=== PATIENT | female | born 1985 | race Two or more races ===

== ENCOUNTER 2024-09-27 18:09 | Emergency (ER) | payer MEDICAID, SELFPAY ==
[2024-09-27 18:16] VITALS: BP 136/91; PULSE 74; RESP 18; TEMP 36.8; O2SAT 98; BMI 31.4
--- NOTE | 2024-09-27 19:38 | XR_ITS ---
Examination:Right hip AP, lateral, AP pelvis 3 views Technique: Hip AP lateral, AP pelvis, 3 views Exam date and time:September 27, 20242043 hrs. Indications: Injury to the hip yesterday, hip pain. Findings: No acute fracture No dislocation Impression: No acute fracture.
--- NOTE | 2024-09-27 19:38 | XR_ITS ---
Examination: CT brain head without contrast. 2-D sagittal coronal reconstructions Date and time of exam:September 27, 2024 1947 hrs. Indications: Patient fell yesterday with injury to the head, head pain CTDI: vol (mGy):46.9 DLP: (mGycm):985 Technique: Multiple CT axial sections of the brain have been obtained, 5 mm slice thickness. Contrast has not been administered. 2-D sagittal, coronal reconstructions have been obtained Low dose protocols were performed. One or more of the following dose reduction techniques were used; automated exposure control, adjustment of the mA and/or KV according to patient size, use of iterative reconstruction technique. Findings: No significant ventricular enlargement. Intra-axial or extra-axial hemorrhage density is not seen. No mass effect or midline shift Basal cisterns are not remarkable. Fourth ventricle is midline. Cranial vault intact. Impression: Negative for acute hemorrhage, mass effect or midline shift
--- NOTE | 2024-09-27 19:38 | XR_ITS ---
Examination: CT cervical spine without contrast 2-D sagittal reconstructions 2-D coronal reconstructions 3-D reconstructions. Exam date and time:September 27, 2024 1947 hrs. Comparison August 25, 2023 Indications: Patient fell yesterday with injury to the neck, persistent neck pain CTDI:vol (mGy) 7.84 DLP: (mGycm) 161 Technique: Multiple 2 mm axial sections of the cervical spine have been obtained. The coronal and sagittal reconstructions have been obtained. 3-D reconstructions have been obtained. Low dose protocols were performed. One or more of the following dose reduction techniques were used; automated exposure control, adjustment of the mA and/or KV according to patient size, use of iterative reconstruction technique. Findings: Axial sections demonstrate intact base of the skull. C1 exhibit satisfactory relationship to the odontoid. No acute cervical vertebral body fracture seen. Alignment posterior spinous processes satisfactory. Impression: No acute cervical fracture.
[2024-09-27 20:24] LABS: HCG Qualitative,Urine Negative
--- NOTE | 2024-09-27 20:25 | EDNOTE_ITS ---
ED Head Injury RME/HPI General Chief complaint: Head Injury Stated complaint: RIGHT HEAD PAIN . 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 Limitations: no limitations Related Data Home Medications ?Medication ?Instructions ?Recorded ?Confirmed pregabalin 75 mg capsule (Lyrica) 75 mg PO BID PRN Pain 06/30/19 06/30/19 Previous Rx's ?Medication ?Instructions ?Recorded hydrocodone 5 mg-acetaminophen 325 1 tab PO BID PRN pain #8 tabs 04/02/23 mg tablet ibuprofen 800 mg tablet 800 mg PO TID PRN pain #30 tabs 04/02/23 nortriptyline 25 mg capsule 25 mg PO .qhs #30 caps 06/25/23 Allergies Allergy/AdvReac Type Severity Reaction Status Date / Time latex Allergy Severe Hives Verified 09/27/24 18:10 Penicillins Allergy Severe FACIAL Verified 09/27/24 18:10 SWELLING Pork/Porcine Containing Allergy Severe Hives Verified 09/27/24 18:10 Products Review of Systems Review of Systems Systems Reviewed: All systems reviewed, normal except as documented Constitutional Constitutional: Reports system reviewed and no additional complaints, except as documented, Reports as per HPI, Denies fever(s) and Reports headache(s) (pain) ENT Ears, Nose, Mouth, and Throat: Denies disequilibrium, Reports headache(s) (pain) and Reports neck pain Cardiovascular Cardiovascular: Reports system reviewed and no additional complaints, except as documented, Denies chest pain and Denies dyspnea Respiratory Respiratory: Reports system reviewed and no additional complaints, except as documented, Denies cough and Denies dyspnea Gastrointestinal Gastrointestinal: Reports system reviewed and no additional complaints, except as documented, Denies abdominal pain, Denies nausea and Denies vomiting Musculoskeletal Musculoskeletal: Reports as per HPI, Reports arthralgias and Reports neck pain Neurologic Neurologic: Reports system reviewed and no additional complaints, except as documented, Denies confusion, Denies disequilibrium and Reports headache(s) (pain) Psychiatric Psychiatric: Denies confusion Past Medical History Past Medical History CARDIAC: Negative Congestive Heart Failure RESPIRATORY: Negative Chronic Obstructive Pulmonary Disease (COPD) GASTROINTESTINAL: Positive Hiatal Hernia GENITOURINARY: Negative Renal Disease MUSCULOSKELETAL: Positive Musculoskeletal Disorders ENDOCRINE: Negative Diabetes Mellitus Type 1 or Diabetes Mellitus Type 2 Social History SMOKING STATUS: Never smoker ED Exam General Limitations: Present no limitations General appearance: Present alert and in no apparent distress Head Head exam: Present atraumatic Eye Eye exam: Present normal appearance, PERRL and EOMI ENT ENT exam: Present normal exam, normal oropharynx and mucous membranes moist Neck Neck exam: Present normal inspection, full ROM and trachea midline Chest Chest inspection: Present normal inspection and symmetric chest wall rise Respiratory Respiratory exam: Present normal lung sounds bilaterally Cardiovascular Cardiovascular exam: Present regular rate, normal rhythm and normal heart sounds Abdominal Exam Abdominal exam: Present soft and normal bowel sounds Extremities Exam Extremities exam: Present full ROM Expanded Lower Extremity Exam Hip/Pelvis exam: Present full ROM (R) and tenderness Back Exam Back exam: Present normal inspection and full ROM Neurological Exam Neurological exam: Present alert, oriented X3 and CN II-XII intact Psychiatric Psychiatric exam: Present normal affect and normal mood Skin Skin exam: Present warm, dry, intact and normal color Course Quality Measures none Orders Category Date Time Status CT cervical spine wo con Stat Exams 09/27/24 19:[address] head/brain wo con Stat Exams 09/27/24 19:38 Completed XR hip RT w pelvis min 4V Stat Exams 09/27/24 19:38 Completed HCG Qualitative,Urine Stat Lab 09/27/24 19:53 Completed Vital Signs Vital signs: Vital Signs Temperature 98.2 F 09/27/24 18:16 Pulse Rate 74 09/27/24 18:16 Respiratory Rate 18 09/27/24 18:16 Blood Pressure 136/91 H 09/27/24 18:16 Pulse Oximetry (%) 98 09/27/24 18:16 Oxygen Delivery Method Room Air 09/27/24 18:16 O2 at 98% on RA and WNLs Head Injury MDM Narrative MDM Narrative:: 38F with history of David Danlos and some undiagnosed neurological disorder (getting LP with neurologist next week) presents to ED with R hip and R head pain after trip and fall yesterday. Physical exam reveals normal pupil response and EOM. ENT clear. No neck tenderness. ROM intact. Some R hip tenderness, but ROM and gait normal. Patient is afebrile, calm, and alert. Even though unlikely any serious injury, patient requests CT/XR, which were normal. Patient data External records reviewed:: [facility] previous records Clinical information provided by:: patient Social determinants that could affect healthcare access:: none Patient has the following chronic illnesses:: ED How is presenting disease/condition affected by chronic disease/condition?: exacerbated by Evaluation data The following diagnostics were reviewed and interpreted by me:: lab results and radiology exam(s) Lab and/or radiology exams considered but not ordered:: ordered Interpretation Summary: above Medications / Prescriptions Medications or Prescriptions considered but not ordered:: not ordered Medication administrations:: n/a Consultations Consultation(s) initiated? (list below): No Diagnosis Differential diagnosis head injury: concussion without loss of consciousness, epidural hematoma, closed head injury, subarachnoid hematoma, postconcussion syndrome, subdural hematoma and other (hip contusion/fx, cervical contusion/fx) Most likely diagnosis given after review of the tests above:: hip contusion and CHI Admission Indicated Admission indicated?: not indicated Admission Request Was there a request for admission?: No Disposition Plan Disposition Plan: Discharge Discharge Attestation Discharge Attestation: The patient and all family members were given an opportunity to ask questions and understood the discharge instructions. Discharge instructions specifically effects, indications for sooner follow up or return to the emergency department, and the expected course of current diagnosis. Patient condition: Stable Discharge Plan Plan Patient Disposition: HOME (Self Care) Disposition Comment: Stable Prescriptions/Referrals Prescriptions/Med Rec: No Action Lyrica 75 mg Capsule 75 mg PO BID PRN (Reason: Pain) ibuprofen 800 mg tablet 800 mg PO TID PRN (Reason: pain) Qty: 30 0RF hydrocodone-acetaminophen 5-325 mg tablet 1 tab PO BID MDD 10 PRN (Reason: pain) Qty: 8 0RF nortriptyline 25 mg capsule 25 mg PO .qhs Qty: 30 0RF Referrals: Bakari Barrera PA-C [Primary Care Provider] - In 1 week Problem List Clinical Impression: Closed head injury, Contusion of hip Patient/Caregiver Discharge Instructions Additional Instructions: Please follow-up with PCP within 24-48 hours and return immediately if symptoms worsen. If problem persists, recommend outpatient PT and/or MRI follow-up. In the meantime, rest, use ice/heat, and/or compression. Good luck with upcoming LP. :) Print Language: Niuean Stand Alone Forms: Patient Portal Info Letter PA/[employer] Supervising Physician PA/[employer] Supervising Physician: Dr. Richardson
[2024-09-27 21:55] VITALS: BP 132/87; PULSE 74; RESP 18; TEMP 36.7; O2SAT 99
== END 2024-09-27 21:57 | disposition home or self-care (01) ==
PROVIDERS: Physician Assistant; Emergency Provider Emergency Medicine; PCP Physician Assistant
DX: S09.90XA Unspecified injury of head, initial encounter (principal); S70.01XA Contusion of right hip, initial encounter; S19.9XXA Unspecified injury of neck, initial encounter; W01.0XXA Fall on same level from slipping, tripping and stumbling without subsequent striking against object, initial encounter
CPT/HCPCS: 70450; 72125; 73503; 81025; 99284